=== PATIENT | female | born 1990 | race Caucasian/White ===

== ENCOUNTER 2020-04-02 18:10 | Emergency (ER) | payer OTHER ==
[~2020-04-02] VITALS: Ht 170.2 cm; Wt 72.6 kg
--- NOTE | 2020-04-02 18:39 | NUR ---
CAME TO ER WITH C/O LOWER ABDOMINAL PAIN, VAGINAL AREA PAIN, LOWER BACK PAIN, FEET NUMBNESS, WEAKNESS AND NAUSEA X 2 WEEKS. "Been having yeast infection/UTI often last couple months worse now- intense pain this am". TOOK ATB CIPRO x 7 DAYS W NO RELIEF FOR UTI. TO ER BED 17, HOOKED TO MONITOR, CHANGED TO HOSP GOWN, WARM BLANKET PROVIDED, PATIENT AAO X 4, BREATHING EVEN AND UNLABORED. AWAITING MD MYLES.
--- NOTE | 2020-04-02 19:02 | NUR ---
KRYSTIN HERNANDEZ AT BEDSIDE FOR EVAL.
[2020-04-02 19:37] LABS: BILIRUBIN,URINE Negative (NEGATIVE); BLOOD, URINE Trace-intact Ery/uL (NEGATIVE); COLOR,URINE Orange (YELLOW); KETONES,URINE Negative (NEGATIVE); LEUKOCYTE ESTERASE ,URINE Trace (NEGATIVE); NITRITE, URINE Positive (NEGATIVE); PROTEIN,URINE Negative (NEGATIVE); UGLUCOSE 100 MG/DL mg/dL (NEGATIVE); UROBILINOGEN,URINE 0.2 EU/dL (0.2)
[2020-04-02 19:38] LABS: APPEARANCE,URINE HAZY (CLEAR)
--- NOTE | 2020-04-02 19:53 | NUR ---
ULTRASOUND AT BEDSIDE
[2020-04-02 20:10] LABS: BACTERIA,URINE Many /HPF (None Seen); SQUAMOUS EPITHELIAL CELL,UR Moderate /HPF (None Seen)
[2020-04-02 21:20] VITALS: BP 110/79
--- NOTE | 2020-04-02 21:21 | NUR ---
Patient discharged to home in stable condition. Written and verbal after care instructions given. Patient verbalizes understanding of instruction.Pt ambulatory with a steady gait
== END 2020-04-02 21:21 | disposition home or self-care (01) ==
LOC: ER 18:19
DX: N39.0 Urinary tract infection, site not specified (principal)
CPT/HCPCS: 76856-TC; 81000-TC; 84703-TC; 87086-TC; 87210-TC